=== PATIENT | male | born 1995 | race Caucasian/White ===

== ENCOUNTER 2016-03-18 19:20 | Emergency (ER) | payer OTHER ==
[2016-03-18 19:37] VITALS: BP 142/60
--- NOTE | 2016-03-18 21:10 | ERNOTE ---
Integumentary HPI - Narrative Date of Service: 03/18/16 - General Presenting Symptoms: abscess Time Seen by Provider: 03/18/16 20:21 Source: patient Exam Limitations: no limitations - Immun/Allergies/Home Medications Immunizations: IMMUNIZATION HX Immunizations Up to Date Yes History of Influenza Vaccine Yes Hx Pneumococcal Vaccination No Allergies/Adverse Reactions: Allergies Allergy/AdvReac Type Severity Reaction Status Date / Time amoxicillin Allergy Severe Swelling Verified 03/18/16 19:31 of Throat Penicillins Allergy Severe Swelling Verified 03/18/16 19:31 of Throat Home Medications: HOME MEDICATIONS Mupirocin Calcium [Bactroban Nasal] 1 appl NS BID #1 oint...g. 03/18/16 [Last Taken Unknown] Sulfamethoxazole/Trimethoprim [Bactrim Ds] 1 tab PO BID 03/18/16 [Last Taken Unknown] - History of Present Illness Narrative: Pt. comes in with c/o abscess for two weeks on his L cheek. Pt. states that he has had an abscess in the exact same place 6 months ago with resolution of abscess after I and D previously. Pt. was seen at [facility] yesterday and started on bactrim but the abscess has worsened. Review of Systems - Review of Systems Constitutional: Present: no symptoms reported EYE: Present: no symptoms reported ENT: Present: no symptoms reported Respiratory: Present: no symptoms reported. Absent: shortness of breath, cough , wheezing Cardiology: Present: no symptoms reported. Absent: chest pain Gastrointestinal/Abdominal: Present: no symptoms reported Genitourinary: Present: no symptoms reported Musculoskeletal: Present: no symptoms reported. Absent: back pain, joint pain Skin: Present: lesions - abscess L cheek with necrotic tissue at center 0.3cm total abscess fluctuance 3cm in diameter and totall cellulytic area 5cm in diameter Neurological: Present: no symptoms reported. Absent: headache, dizziness/light- headedness, numbness, tingling All Other Systems: All systems neg except as marked - Patient's Past Medical History Patient History - Medical: No pertinent hx Patient History - Cardiac/Respiratory: Asthma Patient History - Cancer: No Hx of Cancer Patient History - Surgical Procedures: No surgical history Patient History - Other: None - Social History Living Situations: home Abuse History: No History of abuse Psych History: No pertinent hx Smoking Status: Current every day smoker Have you smoked in the past 12 months: Yes Do you dip or chew tobacco: No Patient requests Smoking Cessation Consult: No Initiate information on Smoking Cessation: No Alcohol Use: occasionally Drug Use: none - Immunizations Immunizations Up to Date: Yes Hx Pneumococcal Vaccination: No History of Influenza Vaccine: Yes Physical Exam - Physical Exam General Appearance: Present: wd/wn, alert, no apparent distress Eye Exam: Normal inspection: bilateral, PERRL: bilateral, EOMI: bilateral Ears, Nose, Throat: Present: normal ENT inspection, hearing grossly normal, normal pharynx Neck: Present: normal inspection, nontender. Absent: lymphadenopathy (R), lymphadenopathy (L) Respiratory: Present: no respiratory distress, normal breath sounds, no accessory muscle use, chest nontender, lungs clear Cardiovascular/Chest: Present: regular rate, rhythm, no murmur, normal peripheral pulses Gastrointestinal/Abdominal: Present: normal bowel sounds, nontender, nondistended, soft, no organomegaly Back Exam: Present: normal inspection, normal range of motion, no CVA tenderness , no vertebral tenderness Extremity Exam: Present: normal inspection, non-tender, no edema, normal range of motion Neurological Exam: Present: alert, oriented, normal mood/affect, no motor/ sensory deficits. Absent: granite setter II-XII nml as tested, normal cerebellar test Skin Exam: Present: normal color, warm/dry, other - abscess L cheek with necrotic tissue at center 0.3cm total abscess fluctuance 3cm in diameter and totall cellulytic area 5cm in diameter. Absent: pallor, skin rash ED Progress - Date and Time Seen: Date and Time: 03/18/16 21:09 Am concerned because of necrotic tissue in wound that pt. may require surgical I and D a some point so referred to Dr Christian - Vital Signs Patient's Vital Signs:: I have reviewed the patient's vital signs. Vital Signs: Vital Signs 03/18/16 19:32 Temperature 35.9 C L Pulse Rate 95 Respiratory 16 Rate Blood Pressure 142/60 O2 Sat by Pulse 98 Oximetry - Progress/Reassessment Chief Complaint: Abscess Progress:: Improved Procedures Left Cheek Anesthesia: 1% Lidocaine I & D Prep: betadine prep, sterile drapes applied Blade Size: 15 Findings and Actions: purulent drainage large, probed/breakup loculation, packed with guaze, cultures obtained, other - small amount of necrotic material removed from the wound Estimated blood loss (ml): 0 Complications: Pt luciana procedure well Departure Clinical Impression: Abscess - Departure Disposition: Home self-care Condition: Good Instructions: Abscess, [id number] Additional Instructions: please follow up with Dr Christian in 2-3 days. Referrals: Ky Christian MD [Staff Physician] - Prescriptions: Mupirocin Calcium [Bactroban Nasal] 1 appl NS BID #1 oint...g.
== END 2016-03-18 20:57 | disposition home or self-care (01) ==
LOC: ER 19:20
PROC: 0H91XZZ Drainage of Face Skin, External Approach (ICD-10-PCS; principal; 2016-03-18)
DX: L02.01 Cutaneous abscess of face (principal); F17.210 Nicotine dependence, cigarettes, uncomplicated